=== PATIENT | female | born 1995 | race Caucasian/White ===

== ENCOUNTER 2018-04-23 21:38 | Emergency (ER) | payer SELFPAY ==
[~2018-04-23] VITALS: Wt 86.1 kg
[~2018-04-23 21:38] MED LIST: BACTDS PO; IBUP-1542 PO; IBUP-1544 PO; PERCOCET PO
[2018-04-23 21:44] VITALS: BP 136/80; PULSE 98; RESP 20
== END 2018-04-24 01:57 | disposition left against medical advice (07) ==
LOC: FTE 21:38
DX: Z53.21 Procedure and treatment not carried out due to patient leaving prior to being seen by health care provider (principal)